=== PATIENT | female | born 1990 | race Caucasian/White ===

== ENCOUNTER 2021-01-02 04:29 | Emergency (ER) | payer SELFPAY ==
[~2021-01-02] VITALS: Ht 153.7 cm; Wt 45.5 kg
[2021-01-02 04:50] VITALS: BP 109/57
[2021-01-02] MEDS ORDERED: IV RINGERS,LACTATED 500ML 500 ML IV ONE (05:00)
[2021-01-02] MEDS ORDERED: fentaNYL PF VIAL 100 MCG/2 ML VIAL IVP ONE (05:00)
--- NOTE | 2021-01-02 05:06 | ED.ADGEN ---
General Adult EDM: Chief Complaint: FLANK PAIN HPI: HPI: Patient is a 30 year old female coming in for right-sided abdominal pain for 3 days. Patient states the pain is gradually gotten worse. Is worse with movement, but is still present at rest. States it is her right abdomen and right upper quadrant that radiates to her shoulder. Denies any fevers, vomiting, diarrhea. Has a history of daily alcohol use and states she drinks a pint a day. Last alcohol intake 1 hour prior to arrival. Patient denies any hematuria, dysuria, vaginal bleeding or discharge, or dyspareunia. Surgical history of ectopic . Review of Systems: Review of Systems: All other systems within normal limits except for as noted in the HPI Current Medications: Current Medications Medications (Trade) Dose Ordered Sig/Jc Start Time Stop Time Status Last Admin Dose Admin Fentanyl Citrate (Fentanyl 2ml Vial) 75 mcg 1X ONCE 01/02/21 05:00 01/02/21 05:01 DC Ringer's Solution 500 ml @ 500 mls/hr 1X ONCE 01/02/21 05:00 01/02/21 05:59 Allergies: Allergies: Allergies Coded Allergies Type Severity Reaction Last Updated Verified No Known Drug Allergies 01/02/21 No Physical Exam: PE: Constitutional: Well developed, well nourished, no acute distress, non-toxic appearance. [] HENT: Normocephalic, atraumatic, bilateral external ears normal, nose normal. [] Eyes: PERRLA, conjunctiva normal, no discharge. [] Neck: No rigidity, supple, no stridor. [] Cardiovascular: Regular rate and rhythm, brisk cap refill [] Lungs & Thorax: Non labored symmetric respirations, no tachypnea or respiratory distress [] Abdomen: Soft, nondistended, guarding with palpation to right upper and lower quadrants.. Skin: Warm, dry, no erythema, no rash. [] Back: Unremarkable Extremities: No deformities, range of motion grossly intact, no lower extremity edema [] Neurologic: Alert and oriented X 3, no focal deficits noted. [] Psychologic: Affect normal, judgement normal, mood normal. [] Current Patient Data: Labs: Laboratory Tests Test 01/02/21 04:35 01/02/21 04:39 Urine Collection Type Unknown Urine Color Yellow Urine Clarity Clear Urine pH 6.5 (<5.0-8.0) Urine Specific [place] >=1.030 (1.000-1.030) Urine Protein Negative mg/dL (NEG-TRACE) Urine Glucose (UA) Negative mg/dL (NEG) Urine Ketones (Stick) Trace mg/dL (NEG) Urine Blood Negative (NEG) Urine Nitrite Positive (NEG) Urine Bilirubin Negative (NEG) Urine Urobilinogen Dipstick 1.0 mg/dL (0.2 mg/dL) Urine Leukocyte Esterase Moderate (NEG) Urine RBC 0 /HPF (0-2) Urine WBC 11-20 /HPF (0-4) Urine Squamous Epithelial Cells Mod /LPF Urine Bacteria Many /HPF (0-FEW) Urine Mucus Marked /LPF POC Urine HCG, Qualitative Hcg negative (Negative) Vital Signs: Vital Signs Date Time Temp Pulse Resp B/P (MAP) Pulse Ox O2 Delivery O2 Flow Rate FiO2 01/02/21 04:50 98.0 109 16 109/57 (74) 99 Room Air 98.0 EKG: EKG: [] Heart Score: C/O Chest Pain: No Risk Factors: Risk Factors: DM, Current or recent (<one month) smoker, HTN, HLP, family history of CAD, obesity. Risk Scores: Score 0 - 3: 2.5% MACE over next 6 weeks - Discharge Home Score 4 - 6: 20.3% MACE over next 6 weeks - Admit for Clinical Observation Score 7 - 10: 72.7% MACE over next 6 weeks - Early Invasive Strategies Radiology/Procedures: Radiology/Procedures: [] Course & Med Decision Making: Course & Med Decision Making 0505: Patient wanting to leave AMA after IV attempt. Patient states she does not like needles and is refusing IV. Discussed with patient we cannot give her anything by mouth because cannot rule out surgical abdomen this time. And we will need contrast to help facilitate diagnosis of her abdominal pain. Discussed risks and benefits with patient and told her to take a few minutes to think about it prior to signing papers. 0515: Patient decided to leave AMA. Papers signed. Ambulate to the waiting room with a steady gait Dragon Disclaimer: Dragpamela Disclaimer: This electronic medical record was generated, in whole or in part, using a voice recognition dictation system. Departure Departure Impression: Primary Impression: RUQ abdominal pain Disposition: LEFT AGAINST MEDICAL ADVICE Condition: STABLE Referrals: NON,STAFF (PCP) BLAKE,PARRIS L MD January 02, 2021 05:06
[2021-01-02 05:08] LABS: BILIRUBIN,URINE NEGATIVE (NEG); CLARITY,URINE CLEAR; COLOR,URINE YELLOW; NITRITE,URINE POSITIVE (NEG); PH,URINE 6.5 (<5.0-8.0); PROTEIN,URINE NEGATIVE (NEG-TRACE)
[2021-01-02 05:13] LABS: BACTERIA,URINE MANY /HPF (0-FEW); RBC,URINE 0 /HPF (0-2)
[2021-01-02 05:14] LABS: BARBITURATES NEG (NEG); BENZODIAZEPINES NEG (NEG); CANNABINOIDS NEG (NEG); COCAINE NEG (NEG); METHADONE NEG (NEG); OPIATES NEG (NEG); PHENCYCLIDINE NEG (NEG)
[2021-01-02 05:18] LABS: AMPHETAMINE/METHAMPHETAMINE POS (NEG)
--- NOTE | 2021-01-04 11:16 | VNOTE ---
CALL BACK NOTE CALL BACK Microbiology 01/02/21 Urine Culture - Final, Complete 01/02/21 Antimicrobic Susceptibility - Final, Complete Positive urine culture, number patient provided is not working. Patient was not treated LUDIN MAURICIO APRN January 04, 2021 11:16
== END 2021-01-02 05:15 | disposition left against medical advice (07) ==
LOC: ER 04:29
DX: R10.11 Right upper quadrant pain (principal)
CPT/HCPCS: 80307; 81001; 81025; 87086; 99283